=== PATIENT | male | born 1965 | race Caucasian/White ===

== ENCOUNTER 2018-03-02 19:14 | Emergency (ER) | payer OTHER ==
[~2018-03-02] VITALS: Ht 175.3 cm; Wt 74.8 kg
[2018-03-02 19:19] VITALS: Ht 175.3 cm; Wt 74.8 kg
[2018-03-02 19:39] LABS: BASOPHILS 0.6 % (0-2); EOSINOPHILS 2.3 % (0-7); HEMATOCRIT 39.1 % (42.0-54.0); HEMOGLOBIN 13.1 g/dL (13.5-17.5); IMMATURE GRANULOCYTES 0.1 % (0-5); LYMPHOCYTES 30.4 % (15-50); MCHC 33.5 g/dL (31.0-37.0); MCV 95.6 fL (80.0-100.0); MEAN PLATELET VOLUME 10.7 fL (7.4-10.4); MONOCYTES 11.3 % (2-11); NEUTROPHILS 55.3 % (40-80); PLATELET COUNT 279 10x3/uL (130-400); RBC 4.09 10x6/uL (4.20-6.10); RDW 13.7 % (11.5-14.5); WBC 7.9 10x3/uL (4.8-10.8)
[2018-03-02 19:55] LABS: ALBUMIN 3.5 g/dL (3.4-5.0); ALKALINE PHOSPHATASE 92 U/L (46-116); ALT (SGPT) 19 U/L (10-68); BILIRUBIN - TOTAL 0.71 mg/dL (0.2-1.3); CALC OSMOLALITY 281 mosm/kg (275-300); CALCIUM 8.7 mg/dL (8.5-10.1); CARBON DIOXIDE 29.2 mmol/L (21.0-32.0); CHLORIDE - SERUM 106 mmol/L (98-107); CREATININE - SERUM 1.4 mg/dL (0.6-1.3); GLUCOSE 102 mg/dL (74-106); PROTEIN - SERUM 7.2 g/dL (6.4-8.2); SODIUM 141 mmol/L (136-145); UREA NITROGEN 16 mg/dL (7-18); eGFR NON AFRICAN AMERICAN 56 mL/min (90-120)
[2018-03-02 19:58] LABS: CREATINE KINASE 50 UL (21-232)
[2018-03-02 20:00] LABS: TROPONIN-I < 0.017 ng/mL (0.000-0.060)
[2018-03-02] MEDS ORDERED: CATAPRES0.2 MG PO (21:19)
[2018-03-02] MEDS ORDERED: AUGMENTIN 875-11 TAB PO (21:38)
[2018-03-02 22:44] VITALS: BP 159/84
== END 2018-03-02 21:49 ==
LOC: D.ER 19:14
PROVIDERS: Emergency Medicine
DX: J32.2 Chronic ethmoidal sinusitis (principal); R51 Headache; I10 Essential (primary) hypertension